=== PATIENT | male | born 1935 | race Caucasian/White ===

== ENCOUNTER → 2016-05-22 | Outpatient (CLI) | payer OTHER ==
[~2016-05-22] MED LIST: GADOBUTROL 10 ML VIAL IVP ONE
[2016-05-22 16:07] LABS: CREATININE 0.8 mg/dL (0.7-1.3); GLOMERULAR FILTRATION RATE > 60
== END ==
LOC: FIMAGING 14:56
PROVIDERS: ATTEND Internal Medicine
DX: R42 Dizziness and giddiness (principal)
CPT/HCPCS: 70553; A9585

== ENCOUNTER 2016-11-18 11:28 | Emergency (ER) | payer OTHER ==
[2016-11-18 11:40] VITALS: RESP 18
[2016-11-18 11:58] LABS: % IMMATURE GRANULYOCYTES 0.2 % (0.0-1.1); ABSOLUTE IMMATURE GRANULOCYTES 0.02 10^3/uL (0.00-0.10); ADD DIFF? NO; ADD MORPH? NO; ADD SCAN? NO; ATYPICAL LYMPHOCYTE FLAG 0 (0-99); FRAGMENT RBC FLAG 0 (0-99); HEMATOCRIT 48.5 % (40.0-51.0); HEMOGLOBIN 16.5 g/dL (13.7-17.5); LEFT SHIFT FLG 0 (0-99); LIPEMIA HEMOLYSIS FLAG 90 (0-99); MEAN CELL HEMOGLOBIN 31.1 pg (27.9-34.1); MEAN CELL VOLUME 91.3 fL (81.5-99.8); MEAN PLATELET VOLUME 10.1 fL (8.7-11.7); PLATELET CLUMPS FLAG 10 (0-99); PLATELET COUNT 229 10^3/uL (150-400); RED BLOOD CELL COUNT 5.31 10^6/uL (4.40-6.38); RED CELL DISTRIBUTION WIDTH 13.2 % (11.5-15.2)
--- NOTE | 2016-11-18 12:23 | CPEKG ---
Heart Rate: 59 RR Interval: 1017 P-R Interval: 216 QRSD Interval: 102 QT Interval: 428 QTC Interval: 424 P Reese: 41 QRS Reese: -18 T Wave Reese: 13 EKG Severity - OTHERWISE NORMAL ECG - EKG Impression: SINUS RHYTHM EKG Impression: BORDERLINE LEFT AXIS DEVIATION Electronically Signed By: Gabriela Leyva 18-Nov-2016 14:05:12
--- NOTE | 2016-11-18 12:24 | EDPHY ---
H & P Stated Complaint: near syncope, dizziness resolved Time Seen by Provider: 11/18/16 11:31 HPI/ROS: CHIEF COMPLAINT: Dizziness HISTORY OF PRESENT ILLNESS: This patient is an 81 year old male arriving via EMS with his following an episode of dizziness at his physical therapy appointment shortly prior to arrival. He has been feeling "off" since yesterday, which he describes as a general fogginess and unsteadiness. Today, he stood up in physical therapy and became very dizzy, which is unusual for him. He did not faint. His physical therapist found his blood pressure was 80/50, and recommended he seek evaluation. In transport, his blood pressure was 110/palp. Currently, he is no longer dizzy but feels fatigued. He did eat breakfast. He has history of angina and has a stent placed, but he has not had any chest pain recently. He denies hematochezia or melena. No fever, vomiting, diarrhea, shortness of breath, or other associated symptoms. REVIEW OF SYSTEMS: A 10 point review of systems was performed and is negative with the exception of the elements mentioned in the history of present illness. - Personal History Current Tetanus/Diphtheria Vaccine: Yes Current Tetanus Diphtheria and Acellular Pertussis (TDAP): Yes - Medical/Surgical History PMH: Angina, Cardiac stent, Hypothyroid, Brain cyst removal, Hypertension, Radical prostatectomy, Left knee arthroscopy, Osteoarthritis, Scoliosis, GI problems, back problems Hx Asthma: No Hx Chronic Respiratory Disease: No Hx Diabetes: No Hx Cardiac Disease: Yes Hx Renal Disease: No Hx Cirrhosis: No Hx Alcoholism: No Hx HIV/AIDS: No Hx Splenectomy or Spleen Trauma: No Other PMH: Angina, cardiac stent, hypothyroid, brain surgery to remove cysts, HTN, radical protectomy, l knee artheroscophie, osteoarthritis, scoliosis - Social History Smoking Status: Former smoker Additional Social History: . at bedside. Lives in [place]. Retired. - Physical Exam Exam: General Appearance: Alert, pleasant and talkative Eyes: Pupils equal and round, no conjunctival pallor or injection ENT, Mouth: Mucous membranes moist Neck: Normal inspection Respiratory: Lungs are clear to auscultation Cardiovascular: Regular rate and rhythm Gastrointestinal: Abdomen is soft and non-tender Neurological: A&O, CN II-XII intact, motor/sensory grossly intact, normal gait Skin: Warm and dry, no rash Extremities: Nontender, no pedal edema Psychiatric: Mood and affect normal Constitutional: Initial Vital Signs Temperature (C) 36.7 C 11/18/16 11:38 Heart Rate 57 L 11/18/16 11:38 Respiratory Rate 18 11/18/16 11:38 Blood Pressure 107/68 11/18/16 11:38 O2 Sat (%) 98 11/18/16 11:38 O2 Delivery Mode Room Air Allergies/Adverse Reactions: No Known Allergies Allergy (Verified 11/18/16 11:35) Home Medications: Medication Instructions Recorded Aspirin [Aspirin 81mg (*)] 81 mg PO DAILY 11/28/14 Atorvastatin Calcium [Lipitor 20 20 mg PO DAILY 11/28/14 mg (*)] Cyanocobalamin [Vitamin B12 (*)] 1,000 mcg PO DAILY 11/28/14 Fluticasone Nasal [Flonase Nasal 2 sprays EACHNARE DAILY PRN 11/28/14 [place]] Herbals/Supplements -Info Only 1 ea PO DAILY 11/28/14 Levothyroxine [Synthroid 50 mcg 50 mcg PO DAILY06 11/28/14 (*)] Triamterene/Hydrochlorothiazid 1 tab PO DAILY 11/28/14 [Triamterene-Hctz 37.5-25 mg Cp] Cholecalciferol Vit D3 [Vitamin D3 1,000 units PO TID 05/03/15 (*)] Ibuprofen [Motrin (*)] 200 mg PO TID PRN 05/03/15 Naproxen Sodium [Aleve 220 MG (*)] 220 mg PO BID PRN 05/03/15 Omeprazole [Prilosec] 40 mg PO DAILY #30 capsule. 05/04/15 Zoloft 25mg (*) 12/05/15 Medical Decision Making - Diagnostics EKG Interpretation: EKG interpreted by me reveals normal sinus rhythm, rate 59, no ST/T changes. Interpretation: borderline left axis deviation, otherwise normal EKG ED Course/Re-evaluation: 81 year old male presents following an episode of orthostatic dizziness and near -syncope. He is currently feeling better, and has no complaints other than fatigue. Plan for EKG, labs including CBC, BMP, Troponin, and UA. EKG shows sinus rhythm. Troponin negative. Labs unremarkable. Unclear etiology of sx. No evidence of dysrhythmia, infection, electrolyte abnormality, vertigo, CVA or medication effect. Plan to discharge home in good condition. Followup and return precautions discussed. The patient is comfortable with this plan. - Data Points Laboratory Results: Laboratory Results 11/18/16 11:30 11/18/16 11:30 Departure - Departure Disposition: Home, Routine, Self-Care Clinical Impression: Dizziness Condition: Good Instructions: Dizziness (ED) Additional Instructions: 1. Follow up with your primary care provider this week for further evaluation or symptoms unresolved. 2. Stay well hydrated, and eat well and regularly. 3. Return to the emergency department for fever, chest pain, shortness of breath , recurrent dizziness or weakness, or other worsening of condition. Referrals: Vivienne Llamas MD [Medical Doctor] - As per Instructions Report Scribed for: Gabriela Leyva Report Scribed by: Cass Salmeron Date of Report: 11/18/16 Time of Report: 12:24 Physician Review and Approval Statement: 11/18/16 12:24 Portions of this note were transcribed by a medical file clerk. I personally performed a history, physical exam, medical decision making, and confirmed accuracy of information the transcribed note.
[2016-11-18 12:46] LABS: ANION GAP 15 mEq/L (8-16); CALCIUM 10.6 mg/dL (8.5-10.4); CARBON DIOXIDE 25 mEq/l (22-31); CHLORIDE 100 mEq/L (97-110); CREATININE 0.9 mg/dL (0.7-1.3); GLOMERULAR FILTRATION RATE > 60; GLUCOSE 90 mg/dL (70-100); POTASSIUM 4.3 mEq/L (3.5-5.2); SODIUM 140 mEq/L (134-144); TROPONIN I < 0.012 ng/mL (0.000-0.034)
[2016-11-18 13:31] VITALS: BP 118/69; PULSE 55; TEMP 98.2; O2SAT 95
== END 2016-11-18 13:31 | disposition home or self-care (01) ==
LOC: EDUNIT#
DX: R42 Dizziness and giddiness (principal); I10 Essential (primary) hypertension; Z79.82 Long term (current) use of aspirin; Z87.891 Personal history of nicotine dependence; Z95.5 Presence of coronary angioplasty implant and graft

== ENCOUNTER 2016-11-27 14:02 | Observation (INO) | payer OTHER ==
--- NOTE | 2016-11-27 15:46 | EDPHY ---
HPI/HX/ROS/PE/MDM Narrative: CHIEF COMPLAINT: Shakiness, fogginess HPI: The patient is an 81 y/o male arriving with his complaining of intermittent, but worsening general fogginess and shakiness for the last week. He was evaluated in the ED on 11/18/16 for similar symptoms and syncope and ultimately discharged home in good condition. Since then he feels his symptoms have worsened. He describes difficulty talking and writing due to shakiness, general unsteadiness, night sweats, nausea, and forgetfulness. He describes difficulty remembering his grandson's name and transposing what he is doing with items in each hand. He denies focal weakness, unilateral paresthesias, fever, cough, chest pain, dyspnea, recent trauma. REVIEW OF SYSTEMS: Aside from elements discussed in the HPI, a comprehensive 10-point review of systems was reviewed and is negative. PMH: Angina, cardiac stent, hypothyroid, brain cyst removal, hypertension, radical prostatectomy, left knee arthroscopy, osteoarthritis, scoliosis, GI problems, back problems Prior medical records reviewed including ED visit 11/18/16 for dizziness. SOCIAL HISTORY: . at bedside. Lives in [place]. Retired. PCP: Dr. Pina PHYSICAL EXAM: General:Patient is alert, in no acute distress. ENT:Eyes are normal to inspection. ENT inspection normal. Neck: Normal inspection. Full range of motion. Respiratory:No respiratory distress. Breath sounds normal bilaterally. Cardiovascular: Regular rate and rhythm. Strong peripheral pulses. Normal cap refill. Abdomen:The abdomen is nontender to palpation. There are no peritoneal signs. Back: Normal to inspection. No tenderness to palpation. Skin: Normal color. No rash. Warm and dry. Extremities: Normal appearance. Full range of motion. Neuro: Oriented x3. Normal motor function. Normal sensory function. No pronator drift. Face symmetric. ED Course: IV established. Labs drawn. UA ordered. Patient placed on monitoring specialist. Head CT and chest x-ray ordered. 500mL IV NS administered. The 12 lead EKG was interpreted by myself. See hard copy and/or "tracemaster" electronic copy for interpretation. Head CT shows hypodensity in caudate nucleus that indicates likely prior stroke. Plan for brain MRI to further evaluate. Patient was unable to fit in the MRI due to severe kyphosis. He will require admission. He is not a TPA candidate due to unknown onset of symptoms. 174: Spoke with hospitalist service. Dr. Smith accepts admission. 1744: Consulted with Dr. Riley, neurology. He will consult on patient during admission. - Data Points Imaging Results: Imaging Impressions Chest X-Ray 11/27/16 15:48 Impression: Clear lungs. No acute process. Head CT 11/27/16 15:49 Impression: 1. Acute versus subacute left basal ganglia infarct without hemorrhage or mass effect. 2. Old subcentimeter linear infarct right cerebellar hemisphere. 3. Extensive cerebrovascular atherosclerosis. 4. No acute hemorrhage, hydrocephalus or mass effect. 5. Sinusitis with postsurgical changes. Recommendation: MRI brain. Findings and recommendations discussed with Emergency Department physician, Miko Silva MD at 1600 hour, 11/27/2016. Final report concurs with initial preliminary interpretation. Imaging: Discussed imaging studies w/ customer support representative Radiologist, I viewed and interpreted images myself Laboratory Results: Laboratory Results 11/27/16 16:45 11/27/16 16:45 11/27/16 11/27/16 11/27/16 16:45 16:45 16:30 WBC 6.47 10^3/uL 10^3/uL (3.80-9.50) RBC 4.94 10^6/uL 10^6/uL (4.40-6.38) Hgb 15.5 g/dL g/dL (13.7-17.5) Hct 44.9 % % (40.0-51.0) MCV 90.9 fL fL (81.5-99.8) MCH 31.4 pg pg (27.9-34.1) MCHC 34.5 g/dL g/dL (32.4-36.7) RDW 13.0 % % (11.5-15.2) Plt Count 169 10^3/uL 10^3/uL (150-400) MPV 9.9 fL fL (8.7-11.7) Neut % (Auto) 69.8 % % (39.3-74.2) Lymph % (Auto) 23.5 % % (15.0-45.0) [place] % (Auto) 5.3 % % (4.5-13.0) Eos % (Auto) 0.6 % % (0.6-7.6) Baso % (Auto) 0.5 % % (0.3-1.7) Nucleat RBC Rel Count 0.0 % % (0.0-0.2) Absolute Neuts (auto) 4.52 10^3/uL 10^3/uL (1.70-6.50) Absolute Lymphs (auto) 1.52 10^3/uL 10^3/uL (1.00-3.00) Absolute Monos (auto) 0.34 10^3/uL 10^3/uL (0.30-0.80) Absolute Eos (auto) 0.04 10^3/uL 10^3/uL (0.03-0.40) Absolute Basos (auto) 0.03 10^3/uL 10^3/uL (0.02-0.10) Absolute Nucleated RBC 0.00 10^3/uL 10^3/uL (0-0.01) Immature Gran % 0.3 % % (0.0-1.1) Immature Gran # 0.02 10^3/uL 10^3/uL (0.00-0.10) Sodium 138 mEq/L mEq/L (134-144) Potassium 3.5 mEq/L mEq/L (3.5-5.2) Chloride 104 mEq/L mEq/L (97-110) Carbon Dioxide 24 mEq/l mEq/l (22-31) Anion Gap 10 mEq/L mEq/L (8-16) BUN 18 mg/dL mg/dL (7-23) Creatinine 0.8 mg/dL mg/dL (0.7-1.3) Estimated GFR > 60 Glucose 94 mg/dL mg/dL (70-100) Calcium 10.1 mg/dL mg/dL (8.5-10.4) Total Bilirubin 1.0 mg/dL mg/dL (0.1-1.4) Conjugated Bilirubin 0.3 mg/dL mg/dL (0.0-0.5) Unconjugated Bilirubin 0.7 mg/dL mg/dL (0.0-1.1) AST 28 IU/L IU/L (17-59) ALT 46 IU/L IU/L (21-72) Alkaline Phosphatase 75 IU/L IU/L (38-126) Troponin I < 0.012 ng/mL ng/mL (0.000-0.034) Total Protein 7.2 g/dL g/dL (6.3-8.2) Albumin 4.5 g/dL g/dL (3.5-5.0) Urine Color YELLOW Urine Appearance TURBID Urine pH 7.0 (5.0-7.5) Ur Specific [place] 1.019 (1.002-1.030) Urine Protein NEGATIVE (NEGATIVE) Urine Ketones NEGATIVE (NEGATIVE) Urine Blood NEGATIVE (NEGATIVE) Urine Nitrate NEGATIVE (NEGATIVE) Urine Bilirubin NEGATIVE (NEGATIVE) Urine Urobilinogen NEGATIVE EU EU (0.2-1.0) Ur Leukocyte Esterase NEGATIVE (NEGATIVE) Urine Glucose NEGATIVE (NEGATIVE) Medications Given: Discontinued Medications Sodium Chloride (Ns) 500 mls @ 0 mls/hr IV EDNOW ONE; Wide Open PRN Reason: Protocol Stop: 11/27/16 15:49 Last Admin: 11/27/16 16:49 Dose: 500 mls General Time Seen by Provider: 11/27/16 15:34 Initial Vital Signs: Initial Vital Signs Temperature (C) 36.5 C 11/27/16 14:26 Heart Rate 67 11/27/16 14:26 Respiratory Rate 17 11/27/16 14:26 Blood Pressure 166/89 H 11/27/16 14:26 O2 Sat (%) 95 11/27/16 14:26 O2 Delivery Mode Room Air Allergies/Adverse Reactions: No Known Allergies Allergy (Verified 11/27/16 14:23) Home Medications: Medication Instructions Recorded Aspirin [Aspirin 81mg (*)] 81 mg PO DAILY 11/28/14 Atorvastatin Calcium [Lipitor 20 20 mg PO DAILY 11/28/14 mg (*)] Fluticasone Nasal [Flonase Nasal 2 sprays EACHNARE DAILY PRN 11/28/14 [place]] Herbals/Supplements -Info Only 1 ea PO DAILY 11/28/14 Levothyroxine [Synthroid 50 mcg 50 mcg PO DAILY06 11/28/14 (*)] Cholecalciferol Vit D3 [Vitamin D3 1,000 units PO TID 05/03/15 (*)] Omeprazole [Prilosec] 40 mg PO DAILY #30 capsule. 05/04/15 Zoloft 25mg (*) 12/05/15 Departure - Departure Disposition: [facility] Clinical Impression: left basal ganglia Stroke Qualifiers: CVA mechanism: other Qualified Code(s): I63.8 - Other cerebral infarction Condition: Fair Referrals: Parvez Pina MD [Primary Care Provider] - As per Instructions Report Scribed for: Miko Silva Report Scribed by: Emelia Herrera Date of Report: 11/27/16 Time of Report: 15:35 Physician Review and Approval Statement: Portions of this note were transcribed by an ED scribe. I personally performed the history, physical exam, and medical decision making; and confirm the accuracy of the information in the transcribed note.
[2016-11-27] MEDS ORDERED: NS 500 ML IV ONE (15:48)
[2016-11-27 16:43] LABS: COLOR YELLOW; LEUKOCYTE ESTERASE,URINE NEGATIVE (NEGATIVE); NITRITE,URINE NEGATIVE (NEGATIVE)
[2016-11-27] MEDS ORDERED: GADOBUTROL 10 ML VIAL IVP ONE ×2 (16:51→16:59)
[2016-11-27 16:57] LABS: % IMMATURE GRANULYOCYTES 0.3 % (0.0-1.1); ABSOLUTE IMMATURE GRANULOCYTES 0.02 10^3/uL (0.00-0.10); ADD DIFF? NO; ADD MORPH? NO; ADD SCAN? NO; ATYPICAL LYMPHOCYTE FLAG 0 (0-99); FRAGMENT RBC FLAG 0 (0-99); HEMATOCRIT 44.9 % (40.0-51.0); HEMOGLOBIN 15.5 g/dL (13.7-17.5); LEFT SHIFT FLG 0 (0-99); LIPEMIA HEMOLYSIS FLAG 90 (0-99); MEAN CELL HEMOGLOBIN 31.4 pg (27.9-34.1); MEAN CELL HEMOGLOBIN CONCENTR. 34.5 g/dL (32.4-36.7); MEAN CELL VOLUME 90.9 fL (81.5-99.8); MEAN PLATELET VOLUME 9.9 fL (8.7-11.7); PLATELET CLUMPS FLAG 20 (0-99); PLATELET COUNT 169 10^3/uL (150-400); RED BLOOD CELL COUNT 4.94 10^6/uL (4.40-6.38)
--- NOTE | 2016-11-27 16:58 | CPEKG ---
Heart Rate: 55 RR Interval: 1091 P-R Interval: 212 QRSD Interval: 108 QT Interval: 460 QTC Interval: 440 P Atlantic: 44 QRS [place]: -19 T Wave [place]: 12 EKG Severity - NORMAL ECG - EKG Impression: SINUS RHYTHM Electronically Signed By: Ko José 27-Nov-2016 20:35:31
[2016-11-27 17:19] LABS: ALANINE AMINOTRANSFERASE 46 IU/L (21-72); ALBUMIN 4.5 g/dL (3.5-5.0); ALKALINE PHOSPHATASE 75 IU/L (38-126); ANION GAP 10 mEq/L (8-16); ASPARTATE AMINOTRANSFERASE 28 IU/L (17-59); BILIRUBIN-CONJUGATED 0.3 mg/dL (0.0-0.5); BILIRUBIN-UNCONJUGATED 0.7 mg/dL (0.0-1.1); CALCIUM 10.1 mg/dL (8.5-10.4); CARBON DIOXIDE 24 mEq/l (22-31); CHLORIDE 104 mEq/L (97-110); CREATININE 0.8 mg/dL (0.7-1.3); GLOMERULAR FILTRATION RATE > 60; GLUCOSE 94 mg/dL (70-100); POTASSIUM 3.5 mEq/L (3.5-5.2); SODIUM 138 mEq/L (134-144); TOTAL PROTEIN 7.2 g/dL (6.3-8.2)
[2016-11-27 17:29] LABS: TROPONIN I < 0.012 ng/mL (0.000-0.034)
[2016-11-27] MEDS ORDERED: FLU VACC QS 2017-18 (3YR+)/PF 0.5 ML SYR (FLUARIX QUAD) IM ONE (19:56)
[2016-11-27] MEDS ORDERED: IOPAMIDOL (ISOVUE 370) 100 ML BTL IV ONE (23:13)
[2016-11-27] MEDS ORDERED: ACETAMINOPHEN 325 MG TAB PO PRN (23:25)
[2016-11-27] MEDS ORDERED: ONDANSETRON DISINTEGRATING 4 MG TAB PO PRN (23:25)
[2016-11-27] MEDS ORDERED: ONDANSETRON 4 MG/2 ML VIAL IVP PRN (23:25)
--- NOTE | 2016-11-28 01:57 | PDGENHP ---
History and Physical - Chief Complaint Malaise - History of Present Illness 81 yo M w/ hx of hypothyroidism and CAD presents with malaise and unsteady gait. He reports he first noticed feeling "foggy" and "unsteady" one week ago. He came in to the ED and was discharged. He went home and felt a bit better but not completely normal. Then, on the day of admission, his symptoms worsened and so he came back in to the ED. He denies infectious ROS as well and weakness or numbness. History Information - Allergies/Home Medication List Allergies/Adverse Reactions: No Known Allergies Allergy (Verified 11/27/16 14:23) Home Medications: Aspirin [Aspirin 81mg (*)] 81 mg PO DAILY 11/28/14 [Last Taken 11/26/16] Atorvastatin Calcium [Lipitor 20 mg (*)] 20 mg PO DAILY 11/28/14 [Last Taken ] Fluticasone Nasal [Flonase Nasal [place]] 2 sprays EACHNARE DAILY PRN 11/28/14 [ Last Taken 11/24/16] Herbals/Supplements -Info Only 1 ea PO DAILY 11/28/14 [Last Taken Unknown] Levothyroxine [Synthroid 50 mcg (*)] 50 mcg PO DAILY06 11/28/14 [Last Taken ] Cholecalciferol Vit D3 [Vitamin D3 (*)] 1,000 units PO TID 05/03/15 [Last Taken 11/27/16 06:00] Omeprazole [Prilosec 20 mg] 20 mg PO DAILY 11/27/16 [Last Taken 11/24/16] Ranitidine HCl 150 mg PO DAILY 11/27/16 [Last Taken Unknown] Sertraline HCl [Zoloft 50mg (*)] 50 mg PO DAILY 11/27/16 [Last Taken 11/27/16] I have personally reviewed and updated: family history, medical history - Past Medical History coronary artery disease - Family History Positive for: CAD - Social History Smoking Status: Former smoker Alcohol Use: None Drug Use: None Review of Systems Review of Systems: ROS: 10pt was reviewed & negative except for what was stated in HPI & below Physical Exam Physical Exam: Temp Pulse Resp BP Pulse Ox 36.8 C 61 18 144/72 H 93 11/27/16 22:40 11/27/16 22:40 11/27/16 22:40 11/27/16 22:40 11/27/16 22:40 Constitutional: no apparent distress, appears nourished Eyes: PERRL, EOMI Ears, Nose, Mouth, Throat: moist mucous membranes, no oral mucosal ulcers Cardiovascular: regular rate and rhythym, no murmur, rub, or gallop, other (S4 present) Respiratory: no respiratory distress, clear to auscultation Gastrointestinal: normoactive bowel sounds, soft, non-tender abdomen Skin: warm, normal color Musculoskeletal: full muscle strength, no muscle tenderness Neurologic: AAOx3, sensation intact bilaterally, CN II-XII Intact, other (NIHSS 0), No weakness, No numbness, No pronator drift, No facial droop Psychiatric: interacting appropriately, not anxious Lab Data & Imaging Review 11/27/16 16:45 11/27/16 16:45 WBC 6.47 10^3/uL (3.80-9.50) 11/27/16 16:45 RBC 4.94 10^6/uL (4.40-6.38) 11/27/16 16:45 Hgb 15.5 g/dL (13.7-17.5) 11/27/16 16:45 Hct 44.9 % (40.0-51.0) 11/27/16 16:45 MCV 90.9 fL (81.5-99.8) 11/27/16 16:45 MCH 31.4 pg (27.9-34.1) 11/27/16 16:45 MCHC 34.5 g/dL (32.4-36.7) 11/27/16 16:45 RDW 13.0 % (11.5-15.2) 11/27/16 16:45 Plt Count 169 10^3/uL (150-400) 11/27/16 16:45 MPV 9.9 fL (8.7-11.7) 11/27/16 16:45 Neut % (Auto) 69.8 % (39.3-74.2) 11/27/16 16:45 Lymph % (Auto) 23.5 % (15.0-45.0) 11/27/16 16:45 [place] % (Auto) 5.3 % (4.5-13.0) 11/27/16 16:45 Eos % (Auto) 0.6 % (0.6-7.6) 11/27/16 16:45 Baso % (Auto) 0.5 % (0.3-1.7) 11/27/16 16:45 Nucleat RBC Rel Count 0.0 % (0.0-0.2) 11/27/16 16:45 Absolute Neuts (auto) 4.52 10^3/uL (1.70-6.50) 11/27/16 16:45 Absolute Lymphs (auto) 1.52 10^3/uL (1.00-3.00) 11/27/16 16:45 Absolute Monos (auto) 0.34 10^3/uL (0.30-0.80) 11/27/16 16:45 Absolute Eos (auto) 0.04 10^3/uL (0.03-0.40) 11/27/16 16:45 Absolute Basos (auto) 0.03 10^3/uL (0.02-0.10) 11/27/16 16:45 Absolute Nucleated RBC 0.00 10^3/uL (0-0.01) 11/27/16 16:45 Immature Gran % 0.3 % (0.0-1.1) 11/27/16 16:45 Immature Gran # 0.02 10^3/uL (0.00-0.10) 11/27/16 16:45 Sodium 138 mEq/L (134-144) 11/27/16 16:45 Potassium 3.5 mEq/L (3.5-5.2) 11/27/16 16:45 Chloride 104 mEq/L (97-110) 11/27/16 16:45 Carbon Dioxide 24 mEq/l (22-31) 11/27/16 16:45 Anion Gap 10 mEq/L (8-16) 11/27/16 16:45 BUN 18 mg/dL (7-23) 11/27/16 16:45 Creatinine 0.8 mg/dL (0.7-1.3) 11/27/16 16:45 Estimated GFR > 60 11/27/16 16:45 Glucose 94 mg/dL (70-100) 11/27/16 16:45 Calcium 10.1 mg/dL (8.5-10.4) 11/27/16 16:45 Total Bilirubin 1.0 mg/dL (0.1-1.4) 11/27/16 16:45 Conjugated Bilirubin 0.3 mg/dL (0.0-0.5) 11/27/16 16:45 Unconjugated Bilirubin 0.7 mg/dL (0.0-1.1) 11/27/16 16:45 AST 28 IU/L (17-59) 11/27/16 16:45 ALT 46 IU/L (21-72) 11/27/16 16:45 Alkaline Phosphatase 75 IU/L (38-126) 11/27/16 16:45 Troponin I < 0.012 ng/mL (0.000-0.034) 11/27/16 16:45 Total Protein 7.2 g/dL (6.3-8.2) 11/27/16 16:45 Albumin 4.5 g/dL (3.5-5.0) 11/27/16 16:45 Urine Color YELLOW 11/27/16 16:30 Urine Appearance TURBID 11/27/16 16:30 Urine pH 7.0 (5.0-7.5) 11/27/16 16:30 Ur Specific [place] 1.019 (1.002-1.030) 11/27/16 16:30 Urine Protein NEGATIVE (NEGATIVE) 11/27/16 16:30 Urine Ketones NEGATIVE (NEGATIVE) 11/27/16 16:30 Urine Blood NEGATIVE (NEGATIVE) 11/27/16 16:30 Urine Nitrate NEGATIVE (NEGATIVE) 11/27/16 16:30 Urine Bilirubin NEGATIVE (NEGATIVE) 11/27/16 16:30 Urine Urobilinogen NEGATIVE EU (0.2-1.0) 11/27/16 16:30 Ur Leukocyte Esterase NEGATIVE (NEGATIVE) 11/27/16 16:30 Urine Glucose NEGATIVE (NEGATIVE) 11/27/16 16:30 Imaging Review: CT shows acute vs. sub-acute L basal ganglia infarct, no mass or hemorrhage. Visualized and Interpreted Chest x-ray results: Yes Chest X-Ray results: no infiltrate Visualized and Interpreted EKG results: Yes EKG Interpretation: Positive for: normal sinsus rhythm Assessment & Plan Assessment: 81 yo M presents with 1 week of malaise and unsteadiness found to have L basal ganglia ischemic stroke. Plan: 1. Ischemic stroke; acute vs. sub-acute - More likely sub-acute noting one week of symptoms, although symptoms did worsen on day of admission. No significant deficits on my exam with NIHSS of 0. Unable to tolerate MRI. ECG in NSR. - Will order CTA Head/Neck for neck and intracranial vessel evaluation - TTE with bubble ordered - Monitor on telemetry - Will check lipids, A1c - Continue ASA, statin; may benefit from change to plavix but will defer to neurology - Neurology consult placed - PT/OT/BUSSER consulted 2. Hx CAD - Patient reports history of previous stent. No chest pain or ECG changes on admission. On ASA/statin. 3. Hypothyroid - On LTX as outpatient. Diet - NPO pending swallow evaluation Code - Full Ppx - SCDs Dispo - Admit to observation noting lack of functional deficits
[2016-11-28] MEDS ORDERED: FLU VACC QS 2017-18 (3YR+)/PF 0.5 ML SYR (FLUARIX QUAD) IM ONE (06:00)
[2016-11-28] MEDS ORDERED: FLUTICASONE NASAL 120 SPRAYS/16 GM MDI EACHNARE PRN (07:06)
[2016-11-28] MEDS ORDERED: LEVOTHYROXINE 50 MCG TAB PO SCH (07:15)
[2016-11-28 07:23] VITALS: RESP 14
[2016-11-28 07:48] LABS: % IMMATURE GRANULYOCYTES 0.2 % (0.0-1.1); ABSOLUTE IMMATURE GRANULOCYTES 0.01 10^3/uL (0.00-0.10); ADD DIFF? NO; ADD MORPH? NO; ADD SCAN? NO; ATYPICAL LYMPHOCYTE FLAG 0 (0-99); FRAGMENT RBC FLAG 0 (0-99); HEMATOCRIT 43.1 % (40.0-51.0); HEMOGLOBIN 14.7 g/dL (13.7-17.5); LEFT SHIFT FLG 0 (0-99); LIPEMIA HEMOLYSIS FLAG 90 (0-99); MEAN CELL HEMOGLOBIN 30.9 pg (27.9-34.1); MEAN CELL HEMOGLOBIN CONCENTR. 34.1 g/dL (32.4-36.7); MEAN CELL VOLUME 90.7 fL (81.5-99.8); MEAN PLATELET VOLUME 10.1 fL (8.7-11.7); PLATELET CLUMPS FLAG 0 (0-99); PLATELET COUNT 151 10^3/uL (150-400); RED BLOOD CELL COUNT 4.75 10^6/uL (4.40-6.38); RED CELL DISTRIBUTION WIDTH 13.1 % (11.5-15.2)
[2016-11-28 07:57] LABS: ALANINE AMINOTRANSFERASE 34 IU/L (21-72); ALBUMIN 3.7 g/dL (3.5-5.0); ALKALINE PHOSPHATASE 65 IU/L (38-126); ANION GAP 9 mEq/L (8-16); ASPARTATE AMINOTRANSFERASE 27 IU/L (17-59); BILIRUBIN,TOTAL 1.2 mg/dL (0.1-1.4); CALCIUM 9.7 mg/dL (8.5-10.4); CARBON DIOXIDE 24 mEq/l (22-31); CHLORIDE 104 mEq/L (97-110); CHOLESTEROL 127 mg/dL (140-220); CHOLESTEROL/HDL RATIO 2.27 RATIO (1.00-4.97); CREATININE 0.8 mg/dL (0.7-1.3); GLOMERULAR FILTRATION RATE > 60; GLUCOSE 88 mg/dL (70-100); HIGH DENSITY LIPOPROTEIN 56 mg/dL (40-65); LDL/HDL RATIO 1.02 RATIO (1.00-3.64); LOW DENSITY LIPOPROTEIN 57 mg/dL (80-100); NON-HIGH DENSITY LIPOPROTEIN 71 mg/dL (90-129); POTASSIUM 3.9 mEq/L (3.5-5.2); SODIUM 137 mEq/L (134-144); TOTAL PROTEIN 6.3 g/dL (6.3-8.2); TRIGLYCERIDE 74 mg/dL (40-150); VERY LOW DENSITY LIPOPROTEINS 14 mg/dL (8-25)
[2016-11-28] MEDS ORDERED: ATORVASTATIN CALCIUM 20 MG TAB PO SCH (09:00)
[2016-11-28] MEDS ORDERED: SERTRALINE HCL 50 MG TAB PO SCH (09:00)
[2016-11-28] MEDS ORDERED: PANTOPRAZOLE SODIUM 40 MG TAB PO SCH (09:00)
[2016-11-28] MEDS ORDERED: ASPIRIN 81 MG CHEWABLE TAB PO SCH (09:00)
[2016-11-28] MEDS ORDERED: NON-FORMULARY NEW DRUG (Omeprazole [Prilosec 20 Mg] 20 MG) PO SCH (09:00)
[2016-11-28] MEDS ORDERED: FAMOTIDINE 20 MG TAB PO SCH (09:00)
[2016-11-28] MEDS ORDERED: NON-FORMULARY NEW DRUG (Ranitidine Hcl [Ranitidine Hcl] 150 MG) PO SCH (09:00)
[2016-11-28] MEDS: CHOLECALCIFEROL VIT D3 1,000 UNITS TAB PO SCH ×2 (09:22→17:06)
[2016-11-28] MEDS ORDERED: IOPAMIDOL (ISOVUE 370) 100 ML BTL IV ONE (11:45)
--- NOTE | 2016-11-28 12:22 | ECHO ---
[id number] + + [address] : : [place] [address] : : [phone] + Adult Echocardiographic Report + ------+ :Name: QUE TILLMAN HStudy Date: 11/28/2016 10:19 AM BP: 137/72 mmHg : : Hospital Admission Number: [id number] [facility] n: 348: :: 1935 Gender: Male Height: 71 in : :Age: 81 yrs Race: WH Weight: 180 lb : :Reason For Study: source of emboli and rule out PFO : : BSA: 2.0 meters 2 : :History: ischemic stroke with bubble : + ------+ MMode/2D Measurements & Calculations IVSd: 0.88 cm RVDd: 3.6 cm FS: 43.4 % Ao root diam: LVPWd: 0.90 cm LVIDd: 4.7 cm EDV(Teich): 3.0 cm LVIDs: 2.6 cm 99.8 ml ESV(Teich): 25.4 ml EF(Teich): 74.6 % LVLd ap4: 9.8 cm SV(MOD-sp4): EDV(MOD-sp4): 112.0 ml 170.0 ml LVLs ap4: 8.1 cm ESV(MOD-sp4): 58.0 ml EF(MOD-sp4): 65.9 % Normal Measurement Values: + + :LVIDd (3.5-5.7cm) IVSd (0.6-1.1cm) LVPWd (0.6-1.1cm) Aortic Root (2.0-3.7cm)Left Atrium (1.5-4.0cm): :LV Vol(d) (76-115ml) LV Vol(s) (29-48ml) Ejec Fraction (50-65%)PV Dajuan (0.6- 1.2m/s) TV Dajuan (0.4-1.0m/s) : :MV E Dajuan (0.8-1.0m/s)MV A Dajuan (0.3-1.0m/s)LVOT Dajuan (0.7-1.2m/s) Asc Ao Dajuan ( 0.9-1.8m/s) : + + Doppler Measurements & Calculations MV E max dajuan: Ao V2 max: AI max dajuan: LV V1 max: 65.2 cm/sec 114.4 cm/sec 416.0 cm/sec 125.4 cm/sec MV A max dajuan: Ao max PG: AI max P.2 mmHg LV V1 max P.2 cm/sec 5.2 mmHg AI dec slope: 6.3 mmHg MV E/A: 1.0 196.1 cm/sec2 MV dec time: AI P1/2t: 621.2 msec 0.26 sec PA V2 max: TR max adjuan: 95.0 cm/sec 305.4 cm/sec PA max PG: TR max P.6 mmHg 37.3 mmHg RAP systole: 5.0 mmHg RVSP(TR): 42.3 mmHg Left Ventricle The left ventricle is normal in size and function. There is normal left ventricular wall thickness. Ejection Fraction = 65-70%. No regional wall motion abnormalities noted. Right Ventricle The right ventricle is normal in size and function. Atria The left atrial size is normal. The right atrium is borderline dilated. Agitated saline administered; negative shunt at rest and positive with valsalva for shunt. Mitral Valve The mitral valve is normal in structure and function. There is no mitral valve stenosis. There is no mitral regurgitation noted. Tricuspid Valve The tricuspid valve is normal in structure and function. There is no tricuspid stenosis. There is trace to mild tricuspid regurgitation. Right ventricular systolic pressure is 42mmHg. There is Doppler evidence for mild pulmonary hypertension. Aortic Valve The aortic valve is trileaflet. There is no aortic stenosis. Mild aortic regurgitation. Pulmonic Valve The pulmonic valve is not well visualized. Great Vessels Mild aortic root dilatation. Pericardium/Pleural There is no pericardial effusion. Conclusion A two-dimensional transthoracic echocardiogram with M-mode and Doppler was performed. Contrast injection was performed. The left ventricle is normal in size and function. Ejection Fraction = 65-70%. There is trace to mild tricuspid regurgitation. Right ventricular systolic pressure is 42mmHg. There is Doppler evidence for mild pulmonary hypertension. Mild aortic regurgitation. Mild aortic root dilatation. Agitated saline administered; negative shunt at rest and positive with valsalva for shunt. Final Reading Physician: Flavia Barroso signed on 11/28/2016 12:21 PM Ordering Physician: Justin Hilliard Performed By: Renetta Douglas
--- NOTE | 2016-11-28 13:58 | ASMTCMCOM ---
CM Note CM Note Notes: Pt's DC plan is TBD. Pt admitted with CVA. PT/OT CLAM DREDGER pending as is a neuro consult. C/M will continue to follow. Date Signed: 11/28/2016 01:57 PM Electronically Signed By:Rhoda Lindsey LCSW
--- NOTE | 2016-11-28 14:28 | NEUROPROG ---
Assessment: [id number] CC: Gait Disturbance, new stroke on head CT HPI: Pt presented to [facility] ER on 11/27/16 complaining of 1 week of unsteady gait. A head CT suggested a new acute or subacute left basal ganglia stroke (could not have a brain MRI as not able to fit into MRI machine) as well as an old right cerebellar stroke. He had no focal neurologic deficits such as weakness or sensory loss. He was admitted. I saw him on 11/28/16 and confirmed the above history. PMHx: hypothyroidism, CAD, multiple strokes seen on head CT 11/27/16 Home Meds: ASA 81 mg qd, Lipitor 20 mg qd, flonase, levothyroxine, omeprazole, ranitidine, zoloft SHx: former smoker FHx: CAD ROS: Pt denied acute fever, total vision loss, active severe chest pain, respiratory failure, total body severe rash, total bowel/bladder incontinence, psychosis, active seizures, or active bleeding O: VS reviewed General: Alert Eyes: Fundoscopic exam not able to visualize optic disks CV: Heart RRR, no murmur, no carotid bruit Lungs: Clear to auscultation bilaterally, no rhonci or rales Neuro: - Mental: . Oriented x person/place/date . concentration appears normal . speech fluency/comprehension normal . memory appears normal . fund of knowledge appear intact - Cranial Nerves: . II: PERRL, VFFTC . III/IV/: EOMI, no nystagmus, normal smooth pursuits, no Ptosis . V: facial sensation intact to LT . VII: face symmetric to eye closure and smile . VIII: hearing intact to conversation . IX/X: uvula raises symmetrically . XI: SCM 5/5 B/L strength . XII: tongue protrudes midline w/nl strength - Motor: . Tone: normal tone in all 4 extrem, slight action tremor in both hands . Strength: no pronator drift, strength 5/5 throughout (B/L delt, bic, tri, hand sport internship, hf/he, df/pf) - Reflexes: B/L bic/BR/patella 2/4 - Sensory: all 4 extrem intact to light touch - Coord: vykhay-jp-fdom wnl, MARGARITA wnl, jrvy-sv-owiy wnl - Gait: normal casual gait - NIH SS 0 Labs: 11/28/16- CBC wnl, CMP wnl, LDL 57L, H1AC pending Rads: 11/27/16- Head CT: 1. Acute versus subacute left basal ganglia infarct without hemorrhage or mass effect. 2. Old subcentimeter linear infarct right cerebellar hemisphere. 3. Extensive cerebrovascular atherosclerosis. 4. No acute hemorrhage , hydrocephalus or mass effect. 5. Sinusitis with postsurgical changes. (I personally visualized the images 11/28/16) 11/27/16- TTE: no cardiac thrombus seen 11/28/16- Head/neck CTA: L thyroid mass, carotid disease < 50% stenosis, moderate R ICA proximal stenosis Assessment: 1. Acute vs subacute L basal ganglia CVA: Normal neurologic exam 11/28/16 (other than mild b/l action tremor in arms). Head CT 11/27/16 shows acute vs subacute L basal ganglia CVA and old R cerebellar CVA. A new stroke in his left basal ganglia 1 week ago could explain his complaint of transient gait disturbance. Cannot fit in MRI machine. Will complete stroke evaluation. Suspected stroke mechanism is small vessel disease. 2. 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 CAD 4. Right Proximal Moderate ICA stenosis: Needs full stroke precautions lifelong 5. Slight Action tremor in each hand: Likely from essential tremor, non- bothersome per patient Plan: - Blood pressure < 140/90 - LDL < 70 (57), continue Lipitor 20 mg qd - H1AC < 7.0 (H1AC pending) - Change aspirin 81 mg qd to Plavix 75 mg qd (stroke occurred on aspirin) - 24 hour telemetry - Cannot fit in MRI machine - PT/OT consult - If above evaluation is unremarkable then OK to discharge and F/U in neurology clinic 1-2 weeks after discharge Objective: Vital Signs Temp Pulse Resp BP Pulse Ox 36.7 C 65 14 156/78 H 95 11/28/16 11:40 11/28/16 11:40 11/28/16 11:40 11/28/16 11:40 11/28/16 11:40 Laboratory Results 11/28/16 07:06 11/28/16 07:06 11/27/16 11/28/16 11/29/16 05:59 05:59 05:59 Intake Total 700 Output Total 900 Balance 700 -900 Allergies/Adverse Reactions: No Known Allergies Allergy (Verified 11/27/16 14:23)
[2016-11-28 16:11] VITALS: BP 121/69; PULSE 59; TEMP 98.3; O2SAT 96
--- NOTE | 2016-11-28 16:13 | PDDCSUM ---
Discharge Summary Discharge Summary: DISCHARGE SUMMARY FOLLOW-UP ITEMS: 1. Outpatient fine-needle aspirate biopsy of the thyroid 2. 30 day event monitor 3. Hemoglobin A1c pending at time of discharge 4. Thyroid function test pending at time of discharge DATE OF ADMISSION: 11/27/16 DATE OF DISCHARGE: 11/28/16 DISCHARGE DIAGNOSES: 1. Subacute cerebrovascular accident 2. Thyroid mass 3. Atrial septal defect CONSULTATIONS: Neurology PROCEDURES / IMAGING: Head CT demonstrating subacute left basal ganglia stroke with old right infarct , lower extremity ultrasounds negative for DVT, echocardiogram demonstrating atrial septal defect with Valsalva maneuver, CT angiogram of head and neck demonstrating mild to moderate vascular stenosis, 4 x 2.5 cm thyroid mass on left CHIEF COMPLAINT: Ataxia, dysarthria, cognitive impairment SUBJECTIVE: Patient is feeling well at time of discharge, reports that he feels safe going home PHYSICAL EXAM ON DISCHARGE: Systolic blood pressure is 130 to 160, heart rate 60, afebrile overnight, satting well on room air, alert awake oriented x3, no apparent distress, pain 0/ 10, cranial nerves 2-12 are intact and tested, motor strength 5/5 bilateral upper and lower extremities, sensation intact bilaterally, heart rate and rhythm are regular, no lower extremity edema, lungs are clear to auscultation bilaterally LABS ON DISCHARGE: LDL 57, hemoglobin A1c pending, creatinine 0.8, potassium 3.9, hemoglobin 14.7 HOSPITAL COURSE BY PROBLEM: 1. Subacute cerebrovascular accident. Patient presented with neurologic symptoms consisting of ataxia, dysarthria, cognitive deficits, all of which are most likely secondary to subacute left basal gangliar stroke noted on noncontrast head CT. An MRI was attempted in order to further clarify, but the patient did not tolerate. CT angiogram was performed of the head and neck and ruled out significant stenosis, but did note there was mild to moderate stenosis present. Consequently, secondary risk management is appropriate, including adjustment from aspirin to Plavix, continuation of statin, hemoglobin A1c pending, to be followed up by primary neurologist. Of note, patient's telemetry did not demonstrate any tachyarrhythmias, but an outpatient 30 day event monitor can be arranged through the [facility] office. Echocardiogram demonstrated atrial septal defect with Valsalva, and lower extremity ultrasounds were performed to rule out DVT. I discussed these findings with Dr. Jacob carreon, he did not recommend systemic anticoagulation. Patient was seen by the therapy modalities, and they recommended outpatient therapy. Patient was provided with prescriptions for these modalities at time of discharge. 2. Thyroid mass. Patient had a 4 x 2.5 cm mass noted on the left thyroid, warranting outpatient fine-needle aspirate. Thyroid function tests were drawn prior to discharge DISCHARGE MEDICATIONS: Please see official discharge medication reconciliation sheet in chart , aspirin discontinued, Plavix 75 mg daily initiated, continue atorvastatin DISCHARGE INSTRUCTIONS: Please follow up with primary care provider this week to schedule outpatient fine-needle aspirate, then follow-up [facility] to arrange 30 day event monitor, then follow-up in the Neurology Clinic TIME SPENT: Greater than 30 minutes were spent on direct patient care, as well as discharge planning and preparation.
[2016-11-30 02:51] LABS: HEMOGLOBIN A1C 5.7 % (4.0-6.0)
== END 2016-11-28 17:34 | disposition home or self-care (01) ==
LOC: F3N 19:28
PROVIDERS: ADMIT Internal Medicine; ATTEND Internal Medicine
DX: I63.8 Other cerebral infarction (principal); I77.1 Stricture of artery; R29.700 NIHSS score 0; E04.9 Nontoxic goiter, unspecified; M40.209 Unspecified kyphosis, site unspecified; I10 Essential (primary) hypertension; E03.9 Hypothyroidism, unspecified; I25.10 Atherosclerotic heart disease of native coronary artery without angina pectoris; J32.9 Chronic sinusitis, unspecified; Z95.5 Presence of coronary angioplasty implant and graft; Z23 Encounter for immunization; Z87.891 Personal history of nicotine dependence
CPT/HCPCS: 70450; 70496; 70498; 70551; 71020; 90686; 92610; 93005; 93306; 93970; 96360; 97162; 97165; 99285; A9585; G0008; G0378; G8978; G8979; G8987; G8989; G8996; G8997; G8998; Q9967; 84481-90

== ENCOUNTER → 2017-01-20 | Outpatient (CLI) | payer OTHER ==
[~2017-01-20] MED LIST changes: -GADOBUTROL 10 ML VIAL IVP ONE; +LIDOCAINE 1% 300 MG/30 ML SDV ONE
== END ==
LOC: FIMAGING 14:03
PROVIDERS: ATTEND Internal Medicine
PROC: 0G9K3ZX Drainage of Thyroid Gland, Percutaneous Approach, Diagnostic (ICD-10-PCS; principal; 2017-01-20)
DX: E04.1 Nontoxic single thyroid nodule (principal)

== ENCOUNTER 2017-04-10 08:24 | Emergency (ER) | payer OTHER ==
--- NOTE | 2017-04-10 08:40 | CPEKG ---
Heart Rate: 57 RR Interval: 1053 P-R Interval: 192 QRSD Interval: 106 QT Interval: 436 QTC Interval: 425 P [place]: 62 QRS [place]: -20 T Wave [place]: 33 EKG Severity - NORMAL ECG - EKG Impression: SINUS RHYTHM Electronically Signed By: Ronak Hoover 10-Apr-2017 08:48:29
--- NOTE | 2017-04-10 08:47 | EDPHY ---
H & P Stated Complaint: left arm pain starting yesterday, through the night, resolved now Time Seen by Provider: 04/10/17 08:28 HPI/ROS: CHIEF COMPLAINT: Atraumatic left arm pain HISTORY OF PRESENT ILLNESS: The patient presents to the ED for evaluation of a 1 day history of atraumatic left arm pain. The patient describes a dull aching pain in his left arm that began early in the evening yesterday. He believes the symptoms started around 8 o'clock at night. The patient reportedly was bothered by discomfort all evening. It seemed to be worsened with positional changes. The patient became nervous this morning given the persistence of symptoms and came to the emergency department for evaluation. Now that he is been up, he reports that his arm discomfort has entirely resolved. The patient denies any chest pain or shortness of breath. He does have a history of coronary artery disease with a remote stent. He reports his last stress test was in 2016 and unremarkable. The patient did recently experiencing a stroke and is currently on Plavix and atorvastatin. REVIEW OF SYSTEMS: A comprehensive 10 point review of systems is otherwise negative aside from elements mentioned in the history of present illness. Source: Patient Exam Limitations: No limitations - Personal History Current Tetanus/Diphtheria Vaccine: Unsure Current Tetanus Diphtheria and Acellular Pertussis (TDAP): Unsure - Medical/Surgical History Hx Asthma: No Hx Chronic Respiratory Disease: No Hx Diabetes: No Hx Cardiac Disease: Yes Hx Renal Disease: No Hx Cirrhosis: No Hx Alcoholism: No Hx HIV/AIDS: No Hx Splenectomy or Spleen Trauma: No Other PMH: stroke, Angina, cardiac stent, hypothyroid, brain surgery to remove cysts, HTN, radical prostatectomy, L knee artheroscophie, osteoarthritis, scoliosis - Social History Smoking Status: Former smoker - Physical Exam Exam: General Appearance: Alert, no distress Eyes: Pupils equal and round no pallor or injection ENT, Mouth: Mucous membranes moist Respiratory: There are no retractions, lungs are clear to auscultation Cardiovascular: Regular rate and rhythm Gastrointestinal: Abdomen is soft and nontender, no masses, bowel sounds normal Neurological: A&O, normal motor function, normal sensory exam, normal cranial nerves, NIH stroke scale 0 Skin: Warm and dry, no rashes Musculoskeletal: Neck is supple nontender Extremities: symmetrical, full range of motion Constitutional: Initial Vital Signs Temperature (C) 36.4 C 04/10/17 08:28 Heart Rate 60 04/10/17 08:28 Respiratory Rate 18 04/10/17 08:28 Blood Pressure 146/72 H 04/10/17 08:28 O2 Sat (%) 98 04/10/17 08:28 O2 Delivery Mode Room Air Allergies/Adverse Reactions: No Known Allergies Allergy (Verified 04/10/17 08:27) Home Medications: Medication Instructions Recorded Fluticasone Nasal [Flonase Nasal 2 sprays [place] DAILY PRN 11/28/14 [place]] Herbals/Supplements -Info Only 1 ea PO DAILY 11/28/14 Levothyroxine [Synthroid 50 mcg 50 mcg PO DAILY06 11/28/14 (*)] Cholecalciferol Vit D3 [Vitamin D3 1,000 units PO TID 05/03/15 (*)] Omeprazole [Prilosec 20 mg] 20 mg PO DAILY 11/27/16 Ranitidine HCl 150 mg PO DAILY 11/27/16 Sertraline HCl [Zoloft 50mg (*)] 50 mg PO DAILY 11/27/16 Atorvastatin Calcium [Lipitor 10 10 mg PO DAILY 11/28/16 mg (*)] Clopidogrel Bisulfate [Clopidogrel] 75 mg PO DAILY #30 tablet 11/28/16 Triamterene/Hctz 37.5/25 0.5 tab PO DAILY 11/28/16 [Maxzide-25 (*)] Medical Decision Making - Diagnostics EKG Interpretation: EKG: Complete interpretation has been separately recorded in the [employer] archive. Summary impression: Sinus rhythm, no ST segment elevation or depression ED Course/Re-evaluation: The patient presents to the ED for resolved atraumatic left arm pain. The patient is noted to have a normal EKG and normal troponin test in the emergency department. He is asymptomatic. He had no complaints of chest pain or shortness of breath. He has no evidence of a DVT or arterial insufficiency clinically. At this point time I do feel the patient can be discharged home. I believe the etiology of his symptoms were likely musculoskeletal or neuropathic in nature. The patient is noted to have no evidence of any focal neurologic findings on his exam currently. He does have a history of cervical stenosis. The patient is advised to follow up with his primary care provider as needed. He should return to the ED for markedly worsening symptoms, chest pain or difficulty breathing. Differential Diagnosis: Differential diagnosis considered includes acute coronary syndrome, cervical radiculopathy, DVT, arterial insufficiency - Data Points Laboratory Results: Laboratory Results 04/10/17 08:40 04/10/17 08:40 04/10/17 04/10/17 08:40 08:40 WBC 8.39 10^3/uL 10^3/uL (3.80-9.50) RBC 4.90 10^6/uL 10^6/uL (4.40-6.38) Hgb 15.5 g/dL g/dL (13.7-17.5) Hct 45.1 % % (40.0-51.0) MCV 92.0 fL fL (81.5-99.8) MCH 31.6 pg pg (27.9-34.1) MCHC 34.4 g/dL g/dL (32.4-36.7) RDW 12.7 % % (11.5-15.2) Plt Count 189 10^3/uL 10^3/uL (150-400) MPV 9.6 fL fL (8.7-11.7) Neut % (Auto) 78.0 % H % (39.3-74.2) Lymph % (Auto) 13.6 % L % (15.0-45.0) Wilson % (Auto) 6.2 % % (4.5-13.0) Eos % (Auto) 1.3 % % (0.6-7.6) Baso % (Auto) 0.4 % % (0.3-1.7) Nucleat RBC Rel Count 0.0 % % (0.0-0.2) Absolute Neuts (auto) 6.55 10^3/uL H 10^3/uL (1.70-6.50) Absolute Lymphs (auto) 1.14 10^3/uL 10^3/uL (1.00-3.00) Absolute Monos (auto) 0.52 10^3/uL 10^3/uL (0.30-0.80) Absolute Eos (auto) 0.11 10^3/uL 10^3/uL (0.03-0.40) Absolute Basos (auto) 0.03 10^3/uL 10^3/uL (0.02-0.10) Absolute Nucleated RBC 0.00 10^3/uL 10^3/uL (0-0.01) Immature Gran % 0.5 % % (0.0-1.1) Immature Gran # 0.04 10^3/uL 10^3/uL (0.00-0.10) Sodium 143 mEq/L mEq/L (135-145) Potassium 4.2 mEq/L mEq/L (3.5-5.2) Chloride 105 mEq/L mEq/L (97-110) Carbon Dioxide 25 mEq/l mEq/l (22-31) Anion Gap 13 mEq/L mEq/L (8-16) BUN 17 mg/dL mg/dL (7-23) Creatinine 0.7 mg/dL mg/dL (0.7-1.3) Estimated GFR > 60 Glucose 128 mg/dL H mg/dL (70-100) Calcium 9.2 mg/dL mg/dL (8.5-10.4) Troponin I < 0.012 ng/mL ng/mL (0.000-0.034) Departure - Departure Disposition: Home, Routine, Self-Care Clinical Impression: Arm pain Qualifiers: Laterality: left Qualified Code(s): M79.602 - Pain in left arm Condition: Good Instructions: Arm Pain (ED) Additional Instructions: 1. The testing done in the emergency department demonstrates no obvious abnormality. 2. Please follow up with your regular physician as needed. 3. Return to the ED for markedly worsening symptoms or other concerns. Referrals: Ashlyn Cary MD [Primary Care Provider] - As per Instructions
[2017-04-10 09:00] LABS: PLATELET COUNT 189 10^3/uL (150-400)
[2017-04-10 09:57] VITALS: BP 97/58; PULSE 57; RESP 20; TEMP 97.7; O2SAT 96
== END 2017-04-10 10:11 | disposition home or self-care (01) ==
DX: M79.602 Pain in left arm (principal); I10 Essential (primary) hypertension; Z87.891 Personal history of nicotine dependence

== ENCOUNTER → 2017-07-09 | Outpatient (CLI) | payer OTHER | LOC: FIMAGING 19:17 | PROVIDERS: ATTEND Physical Medicine & Rehabilitation | DX: M50.30 Other cervical disc degeneration, unspecified cervical region (principal); M47.892 Other spondylosis, cervical region ==

== ENCOUNTER 2017-08-03 10:24 | Day surgery (SDC) | payer OTHER ==
[2017-08-03] MEDS ORDERED: diphenhydrAMINE 25 MG CAP PO ONE ×2 (10:27→10:43)
[2017-08-03] MEDS ORDERED: FAMOTIDINE 20 MG TAB PO ONE (10:27)
[2017-08-03] MEDS ORDERED: NS 1,000 ML IV ONE (10:27)
[2017-08-03] MEDS ORDERED: DIAZEPAM 5 MG TAB PO ONE (10:27)
[2017-08-03] MEDS ORDERED: ASPIRIN EC 325 MG TAB PO ONE ×2 (10:27→10:43)
[2017-08-03] MEDS ORDERED: FAMOTIDINE 20 MG TAB ONE (10:43)
[2017-08-03] MEDS ORDERED: DIAZEPAM 5 MG TAB ONE (10:43)
--- NOTE | 2017-08-03 10:46 | CPEKG ---
Heart Rate: 58 RR Interval: 1034 P-R Interval: 204 QRSD Interval: 102 QT Interval: 424 QTC Interval: 417 P [place]: 46 QRS [place]: -13 T Wave [place]: 10 EKG Severity - NORMAL ECG - EKG Impression: SINUS RHYTHM Electronically Signed By: Bunny Fernandez 03-Aug-2017 15:00:07
[2017-08-03 10:58] LABS: PLATELET COUNT 180 10^3/uL (150-400)
--- NOTE | 2017-08-03 11:00 | PDPROPOC ---
Sedation Plan of Care Sedation Plan of Care: vital signs stable, mental status noted, patient educated of risks, benefits, alternatives, patient can tolerate sedation ASA Classification: ASA 2 Planned drugs: fentanyl, midazolam Mallampati Score: Class 1 Mallampati Reference Image: Patient passed 3-3-2 rule?: Yes
--- NOTE | 2017-08-03 11:01 | PDHPUP ---
History & Physical Update H&P update statement: This history and physical update is based on an assessment of the patient which was completed after admission or registration (within 24 hours), but prior to the surgery/procedure. H&P update: H&P reviewed & patient examined, no change in patient's condition since H&P completed
[2017-08-03 11:07] LABS: INR 1.05 (0.83-1.16); PROTIME(PATIENT) 13.9 SEC (12.0-15.0)
[2017-08-03] MEDS ORDERED: LIDOCAINE 1% 300 MG/30 ML SDV ONE (13:05)
[2017-08-03] MEDS ORDERED: MIDAZOLAM 2 MG/2 ML VIAL ONE (13:06)
[2017-08-03] MEDS ORDERED: VERAPAMIL 5 MG/2 ML VIAL ONE (13:06)
[2017-08-03] MEDS ORDERED: IOPAMIDOL (ISOVUE-370) 150 ML BTL IV ONE (13:06)
[2017-08-03] MEDS ORDERED: fentaNYL 100 MCG/2 ML INJ ONE (13:06)
[2017-08-03] MEDS ORDERED: HEPARIN 10,000 UNIT/10 ML MDV (1,000 UNIT/ML) ONE (13:06)
--- NOTE | 2017-08-03 14:28 | PDDXCAT ---
Diagnostic Cath Note - . 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 No new focal stenosis. LCX: Unobstructed RCA: Dominant: Unobstructed EDP: 12 mm of mercury LVEF: 63% Wall motion: Normal Complications: None Estimated blood loss: <50ml Closure method: TR Band Assessment: Widely patent LAD stent. Mild nonobstructive atherosclerotic cardiovascular disease. Normal left ventricular systolic function with normal filling pressures. No contraindications to surgery identified by today's examination. Plan: Continue secondary prevention. Patient Problems: Problems Problem Status Onset Chest pain Acute Stroke Acute
== END 2017-08-03 18:00 | disposition home or self-care (01) ==
LOC: FCATH 10:24
PROVIDERS: ATTEND Internal Medicine Interventional Cardiology
PROC: 4A023N7 Measurement of Cardiac Sampling and Pressure, Left Heart, Percutaneous Approach (ICD-10-PCS; principal; 2017-08-03)
PROC: B2111ZZ Fluoroscopy of Multiple Coronary Arteries using Low Osmolar Contrast (ICD-10-PCS; principal; 2017-08-03)
PROC: B2151ZZ Fluoroscopy of Left Heart using Low Osmolar Contrast (ICD-10-PCS; principal; 2017-08-03)
DX: I25.10 Atherosclerotic heart disease of native coronary artery without angina pectoris (principal); E78.5 Hyperlipidemia, unspecified; I10 Essential (primary) hypertension; Z86.73 Personal history of transient ischemic attack (TIA), and cerebral infarction without residual deficits
CPT/HCPCS: 93005; 93458; C1769; J1644; J2250; J3010; Q9967

== ENCOUNTER → 2018-02-01 | Day surgery (SDC) | payer OTHER ==
[~2018-02-01] MED LIST changes: -LIDOCAINE 1% 300 MG/30 ML SDV ONE; +LIDOCAINE 1% 300 MG/30 ML SDV SC ONE
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
== END | disposition home or self-care (01) ==
LOC: FCATH 12:48
PROVIDERS: ATTEND Internal Medicine Interventional Cardiology
PROC: 0JH60PZ Insertion of Cardiac Rhythm Related Device into Chest Subcutaneous Tissue and Fascia, Open Approach (ICD-10-PCS; principal; 2018-02-01)
DX: I49.5 Sick sinus syndrome (principal); I25.10 Atherosclerotic heart disease of native coronary artery without angina pectoris; I10 Essential (primary) hypertension; E78.5 Hyperlipidemia, unspecified; Z79.02 Long term (current) use of antithrombotics/antiplatelets; Z87.891 Personal history of nicotine dependence; Z86.73 Personal history of transient ischemic attack (TIA), and cerebral infarction without residual deficits
CPT/HCPCS: C1764